=== PATIENT | female | born 1970 | race Caucasian/White ===

== ENCOUNTER 2020-09-06 18:49 | Emergency (ER) | payer OTHER ==
[~2020-09-06] VITALS: Ht 175.3 cm; Wt 66.2 kg
[~2020-09-06 18:49] MED LIST: BUPR75TA3 PO; ESCI5TAB PO
[2020-09-06 18:54] VITALS: BP 125/81
--- NOTE | 2020-09-06 19:11 | NUR ---
SEEN AND EXAMINED BY ZAIDA GONZALEZ
[2020-09-06] MEDS ORDERED: ONDANSETRON 4 MG TAB.RAPDIS ONE (19:20)
[2020-09-06] MEDS ORDERED: HYDROCODONE/APAP 5/325MG TABLET ONE (19:20)
[2020-09-06] MEDS ORDERED: TDAP [DIPH/PERTUSSIS/TET] 0.5 ML VIAL IM ONE (19:20)
--- NOTE | 2020-09-06 19:20 | NUR ---
WOUND DRESSING DONE BY INFORMATION SERVICES TECH.
[2020-09-06] MEDS: ONDANSETRON 4 MG TAB.RAPDIS SL ONE (19:23)
[2020-09-06] MEDS: TDAP [DIPH/PERTUSSIS/TET] 0.5 ML VIAL IM ONE (19:23)
[2020-09-06] MEDS: HYDROCODONE/APAP 5/325MG TABLET PO ONE (19:23)
--- NOTE | 2020-09-06 19:24 | NUR ---
Patient discharged to home in stable condition. Written and verbal after care instructions given. Patient verbalizes understanding of instruction.
== END 2020-09-06 19:26 | disposition home or self-care (01) ==
LOC: ER 18:58
DX: S61.012A Laceration without foreign body of left thumb without damage to nail, initial encounter (principal); F32.9 Major depressive disorder, single episode, unspecified; Z98.890 Other specified postprocedural states; Z79.899 Other long term (current) drug therapy; W26.0XXA Contact with knife, initial encounter; Y93.89 Activity, other specified; Y92.89 Other specified places as the place of occurrence of the external cause; Y99.8 Other external cause status
CPT/HCPCS: 90471; 90715; 99283; A6403; Q0162